=== PATIENT | male | born 1990 | race Caucasian/White ===

== ENCOUNTER 2018-04-28 08:14 | Emergency (ER) | payer OTHER ==
[2018-04-28] MEDS: DEXAMETHASONE 10 MG/ML 1 ML INJ IM (08:34)
[2018-04-28] MEDS: ALBUTEROL 0.083% (NEB) 2.5 MG/3 ML AMP HHN (08:40)
[2018-04-28] MEDS: IPRATROPIUM (NEB) 0.5 MG/2.5 ML AMP HHN ×2 (08:40→10:02)
[2018-04-28] MEDS: LEVALBUTEROL (NEB) 1.25 MG/0.5 ML AMP HHN (10:02)
== END 2018-04-28 10:34 | disposition home or self-care (01) ==
LOC: FTE 08:14
DX: R05 Cough (principal); J45.901 Unspecified asthma with (acute) exacerbation; Z87.891 Personal history of nicotine dependence
CPT/HCPCS: 71045; 94640; 94664; 96372; 99284-25